=== PATIENT | female | born 1980 | race Two or more races ===

== ENCOUNTER 2018-06-24 04:05 | Emergency (ER) | payer OTHER ==
[~2018-06-24] VITALS: Ht 170.2 cm; Wt 97.1 kg
[2018-06-24] MEDS ORDERED: PERCOCET 5-3251 EACH PO (11:57)
[2018-06-24] MEDS ORDERED: PEPCID AC20 MG PO (11:57)
[2018-06-24] MEDS ORDERED: ZOFRAN ODT4 MG SL (11:57)
[2018-06-24] MEDS ORDERED: KEFLEX500 MG PO (11:57)
== END 2018-06-24 12:52 | disposition home or self-care (01) ==
LOC: ER 04:05
DX: N21.1 Calculus in urethra (principal)